=== PATIENT | male | born 1965 | race African-American/Black ===

== ENCOUNTER 2021-01-20 15:14 | Emergency (ER) | payer BC, SELFPAY ==
--- NOTE | ~2021-01-20 | XR_ITS ---
EXAMINATION: XR chest 1V portable EXAM DATE: 01/20/2021 16:16 INDICATION: Palpitations for one week, history of asthma. TECHNIQUE: Portable AP frontal chest x-ray was obtained. There is no prior study for comparison. FINDINGS: The lungs are clear. There are no pleural effusions. The cardiomediastinal silhouette is within normal limits. There is no pneumothorax suspected. The bones and soft tissues are unremarkab le. IMPRESSION: No acute cardiopulmonary findings. Reviewed, dictated and finalized at location A.
[2021-01-20 15:16] VITALS: BP 140/94; PULSE 63; RESP 12; TEMP 36.7; O2SAT 98
--- NOTE | 2021-01-20 15:24 | ECG_ITS ---
Measurements Intervals [place] Rate: 59 P: 39 OK: 170 QRS: -22 QRSD: 99 T: 9 QT: 404 QTc: 400 Interpretive Statements SINUS BRADYCARDIA VOLTAGE CRITERIA FOR LVH BORDERLINE ST-T WAVE ABNORMALITY- INFERIOR LEADS BASELINE ARTIFACT- I, II, AVR, AVL, AVF, V1-V6 BORDERLINE ECG Electronically Signed On 01-20-2021 15:44:15 CDT by Steve Paz D.O.
[2021-01-20 15:52] LABS: Eosinophils Percent Auto 0.5 % (0-4.4); Hematocrit 39.2 % (42.0-52.0); Hemoglobin 13.2 g/dL (14.0-18.0); Immature Granulocyte Absolute 0.01 K/mm3 (0.00-0.031); Immature Granulocyte Percent A 0.3 % (0-0.5); Lymphocytes Absolute Auto 1.29 K/mm3 (0.9-3.2); Mean Corpuscular HGB Conc 33.7 g/dl (32-36); Mean Corpuscular Hemoglobin 33.4 pg (26-34); Mean Corpuscular Volume 99.2 fl (80-100); Mean Platelet Volume 8.7 fl (7.4-10.4); Monocytes Absolute Auto 0.4 K/mm3 (0.1-0.6); Monocytes Percent Auto 10.3 % (2.6-8.5); Neutrophils Percent Auto 53.9 % (45.5-73.1); Platelet Count Result 204 k/mm3 (150-375); Red Blood Count 3.95 M/mm3 (4.6-6.20); Red Cell Distribution Width 13.6 % (11.5-14.5); White Blood Count 3.7 K/mm3 (4.5-10.0)
[2021-01-20 16:04] LABS: Alanine Aminotransferase 33 U/L (4-50); Alkaline Phosphatase 63 U/L (38-126); Anion Gap 1 mmol/L (8-16); Aspartate Amino Transferase 48 U/L (17-59); Bilirubin,Total 0.3 mg/dL (0.2-1.3); Blood Urea Nitrogen 17 mg/dL (9-20); Carbon Dioxide 29 mmol/L (22-30); Chloride 106 mmol/L (98-107); Estimated CRCL calculation 75 ml/min; Estimated Glomerular Filt Rate > 60; Glucose 95 mg/dL (75-110); Potassium 4.2 mmol/L (3.4-5.0); Sodium 136 mmol/L (137-145)
[2021-01-20 16:11] LABS: Add Urine Microscopic? NO; Appearance Urine Clear (Clear); Bilirubin Urine Negative (Negative); Blood Urine Negative (Negative); Color Urine Yellow (Yellow); Glucose Urine UA Negative (Negative); Ketones Urine Negative (Negative); Leukocyte Esterase Ur Negative LEU/UL (Negative); Nitrate Urine Negative (Negative); Protein Urine Negative (Negative); Specific Grav Ur 1.018 (1.001-1.035); Urobilinogen Urine Negative mg/dL (<2.0)
[2021-01-20 16:15] LABS: Troponin I < 0.012 ng/mL (0.000-0.034)
--- NOTE | 2021-01-20 16:15 | ED.GENADULT ---
HPI - General Adult General Chief complaint: Arrhythmia/Palpitations Stated complaint: chest palpitations Time Seen by Provider: 01/20/21 15:20 Source: patient, EMS and RN notes reviewed Mode of arrival: EMS Limitations: no limitations History of Present Illness HPI narrative: Patient is 55 years old -[place] male presents with fluttering and palpitation at the left side of the chest while walking lasted for 2 minutes. Subsequently developed lightheadedness lasted for 3 to 4 minutes. Patient had similar symptoms and was at [address] [place] [address] 3 days ago with negative work-up. Patient denies any chest pain, shortness of breath, fever, chills, nausea, vomiting, back pain. Currently patient still feeling intermittent fluttering in the chest while the nuclear monitoring technician showing normal rhythm. History of deep vein thrombosis on Xarelto, GERD on antacid. Patient does smoke and drinks denies using marijuana. Related Data Home Medications Medication Instructions Recorded Confirmed pantoprazole 40 mg PO QAM 01/20/21 rivaroxaban [Xarelto] 20 mg PO DAILY 01/20/21 Allergies Allergy/AdvReac Type Severity Reaction Status Date / Time No Known Allergies Allergy Verified 01/20/21 15:22 Review of Systems Review of Systems: Narrative: CONSTITUTIONAL: Denies fever, chills, or sweats. EYES: Denies visual changes, redness, or discharge. ENT: Denies rhinorrhea, congestion, sore throat, or otalgia. CARDIOVASCULAR: Denies chest pain, palpitations, or edema. RESPIRATORY: Denies cough or dyspnea. GASTROINTESTINAL: Denies abdominal pain, nausea, vomiting, or diarrhea. GENITOURINARY: Denies dysuria or hematuria. SKIN: Denies rash or itching. MUSCULOSKELETAL: Denies back pain, joint pain, or myalgia. NEUROLOGIC: Denies headache, numbness, or weakness. PSYCHIATRIC: Denies anxiety or depression. PMFSH Social History Social History Gender identity (if verbalized by the patient): Male Exam Narrative: Exam Narrative: General appearance: Well-developed, well-nourished Skin: Normal color Head: Normocephalic, nontraumatic Eyes: Clear conjunctiva ENT: Oropharynx normal, ears normal, nose normal Neck: Supple, nontender Chest and respiratory: Airway patent, no respiratory distress, no accessory muscle use Heart: Regular rate/rhythm Abdomen: Soft, nontender, no organomegaly, quiet bowel sounds Vascular: Normal peripheral pulses, normal capillary refill. Musculoskeletal: Normal range of motion, nontender back Neurologic: Alert and oriented ?3, CEMENTER MACHINE is normal as tested, no gross motor deficit Course Course Emergency Course: Stable Vital Signs Vital signs: Vital Signs Temperature 36.7 C 01/20/21 15:16 Pulse Rate 63 01/20/21 15:16 Respiratory Rate 12 01/20/21 15:16 Blood Pressure 140/94 H 01/20/21 15:16 Pulse Oximetry 98 01/20/21 15:16 Temperature 36.7 C 01/20/21 15:16 Pulse Rate 63 01/20/21 15:16 Respiratory Rate 12 01/20/21 15:16 Blood Pressure 140/94 H 01/20/21 15:16 Pulse Oximetry 98 01/20/21 15:16 Medical Decision Making MDM Narrative Medical decision making narrative: Patient presents with palpitation and the monitor showing normal rhythm. Raises the suspicious for anxiety/depression inducing palpitation. Labs, EKG, chest x-ray ordered. Further plan to follow Differential Diagnosis Differential Diagnosis: Anxiety, stress, electrolyte imbalance, hyperthyroidism patient Vital Signs Vital Signs: Vital Signs Temperature 36.7 C 01/20/21 15:16 Pulse Rate 63 01/20/21 15:16 Respiratory Rate 12 01/20/21 15:16 Blood Pressure 140/94 H 01/20/21 15:16 Pulse Oxim
[2021-01-20 16:28] LABS: Amphetamine Screen Urine Negative (Negative); Barbiturate Screen Urine Negative (Negative); Benzodiazepines Screen Urine Negative (Negative); Cannabinoid Screen Urine Negative (Negative); Cocaine Screen Urine Negative (Negative); Methadone Screen Urine Negative (Negative); Opiate Screen Urine Negative (Negative); Phencyclidine Screen Urine Negative (Negative)
[2021-01-20 16:45] VITALS: BP 134/70; PULSE 54; RESP 12; O2SAT 99
== END 2021-01-20 16:50 | disposition home or self-care (01) ==
PROVIDERS: Emergency Provider Emergency Medicine
DX: R00.2 Palpitations (principal); F41.9 Anxiety disorder, unspecified; Z86.718 Personal history of other venous thrombosis and embolism; Z79.01 Long term (current) use of anticoagulants; K21.9 Gastro-esophageal reflux disease without esophagitis; F17.200 Nicotine dependence, unspecified, uncomplicated; R00.1 Bradycardia, unspecified; R94.31 Abnormal electrocardiogram [ECG] [EKG]
CPT/HCPCS: 36415; 71045; 80053; 80307; 81003; 84443; 84484; 85025; 93005; 99284